=== PATIENT | female | born 1995 | race Caucasian/White ===

== ENCOUNTER 2017-04-02 23:30 | Emergency (ER) | payer MEDICAID, OTHER, SELFPAY | END 2017-04-03 00:04 | disposition home or self-care (01) | LOC: NAV ERS 23:30 | DX: J06.9 Acute upper respiratory infection, unspecified (principal) | CPT/HCPCS: 87081; 87430; 99283 ==

== ENCOUNTER 2021-07-02 01:42 | Emergency (ER) | payer SELFPAY ==
[2021-07-02 02:07] LABS: Pregnancy Test - Urine (BHCG) Negative (Negative); Pregu Control Background? CLEAR/WHITE (CLR/WHITE); Pregu Control Bar Appear? YES (CONTROL BAR); Specific Gravity 1.032 (1.002-1.036)
[2021-07-02 02:08] LABS: Bilirubin Small (Negative); Blood, Urine Large (Negative); Clarity Slightly Cloudy (Clear); Glucose, Urine (Dipstick) Negative (Negative); Ketone, Urine Negative (Negative); Leukocyte Negative (Negative); Nitrite Negative (Negative); Protein, Urine (Dipstick) Trace mg/dL (Neg-Trace); Specific Gravity, Urine 1.032 (1.002-1.036); Urobilinogen 0.2 mg/dL (Less than 2)
[2021-07-02 02:11] LABS: Bacteria/HPF 2+ HPF (None Seen); WBC/HPF 0-3 HPF (0-3)
[2021-07-02] MEDS ORDERED: Cephalexin 250 MG CAP ONE (02:33)
== END 2021-07-02 02:37 | disposition home or self-care (01) ==
LOC: NAV ERS 01:42
DX: N39.0 Urinary tract infection, site not specified (principal); K29.70 Gastritis, unspecified, without bleeding; F17.290 Nicotine dependence, other tobacco product, uncomplicated; Z79.899 Other long term (current) drug therapy
CPT/HCPCS: 81003; 81015; 81025; 87086; 99284

== ENCOUNTER 2021-10-25 11:00 | Emergency (ER) | payer SELFPAY | END 2021-10-25 11:35 | disposition home or self-care (01) | LOC: NAV ERS 11:00 | DX: J06.9 Acute upper respiratory infection, unspecified (principal); J20.8 Acute bronchitis due to other specified organisms; Z20.822 Contact with and (suspected) exposure to COVID-19; F17.290 Nicotine dependence, other tobacco product, uncomplicated | CPT/HCPCS: 99283; U0003; U0005 ==

== ENCOUNTER 2021-11-04 01:07 | Emergency (ER) | payer SELFPAY | END 2021-11-04 01:33 | disposition home or self-care (01) | LOC: NAV ERS 01:07 | DX: H92.02 Otalgia, left ear (principal); H10.9 Unspecified conjunctivitis; F17.290 Nicotine dependence, other tobacco product, uncomplicated | CPT/HCPCS: 99282 ==

== ENCOUNTER 2024-10-09 18:50 | Emergency (ER) | payer SELFPAY ==
[2024-10-09] MEDS ORDERED: Clindamycin 150 MG CAP ONE (19:18)
== END 2024-10-09 19:27 | disposition home or self-care (01) ==
LOC: NAV ERS 18:50
DX: K04.7 Periapical abscess without sinus (principal); F17.290 Nicotine dependence, other tobacco product, uncomplicated
CPT/HCPCS: 96372; 99283; J1885